=== PATIENT | female | born 1965 | race Caucasian/White ===

== ENCOUNTER 2020-08-10 23:23 | Emergency (ER) | payer MEDICAID, OTHER, SELFPAY ==
[~2020-08-10] VITALS: Ht 147.3 cm; Wt 54.5 kg
--- NOTE | 2020-08-10 23:39 | NUR ---
C/O RIGHT WRIST/PALM/FINGERS PAINFUL STATES HAD BONE DENSITY TEST DONE AND HER DR THINKS SHE HAS RA. NO TRAUMA, PAIN COMES AND GOES BUT HAS NEVER BEEN THIS STRONG BEFORE.
[2020-08-10] MEDS ORDERED: ONDANSETRON ODT 4 MG ONE (23:53)
[2020-08-10] MEDS ORDERED: OXYcodone/APAP 5/325MG TABLET ONE (23:54)
[2020-08-11] MEDS ORDERED: ONDANSETRON ODT 4 MG PO ONE
[2020-08-11] MEDS ORDERED: OXYcodone/APAP 5/325MG TABLET PO ONE
--- NOTE | 2020-08-11 00:04 | NUR ---
MEDICATED PER ORDER, PT UPDATED ON POC AND PROCESS/TIMELINE. CALL [facility] IN [place]. LAB HERE DRAWING BLOOD.
--- NOTE | 2020-08-11 00:35 | NUR ---
REPORT FROM JOSH HARE
[2020-08-11 00:49] LABS: BASOPHILS % (AUTO) 1 % (0-1); EOSINOPHILS % (AUTO) 7 % (1-7); LYMPHOCYTES % (AUTO) 21 % (22-44); MEAN CORPUSCULAR HGB CONC 32.6 g/dL (32.4-35.8); MEAN PLATELET VOLUME 8.2 fL (7.4-10.4); MONOCYTES % (AUTO) 5 % (2-9); NEUTROPHILS % (AUTO) 66 % (42-75); PLATELET COUNT 539 x10^3/uL (130-400); RED BLOOD COUNT 4.79 x10^6/uL (3.82-5.3); RED CELL DISTRIBUTION WIDTH 13.4 % (9.6-15.2)
[2020-08-11 01:00] LABS: MD NO
[2020-08-11 01:23] VITALS: BP 157/67
== END 2020-08-11 01:24 | disposition home or self-care (01) ==
LOC: ED 08-11 00:21
DX: S62.356A Nondisplaced fracture of shaft of fifth metacarpal bone, right hand, initial encounter for closed fracture (principal); I10 Essential (primary) hypertension; X58.XXXA Exposure to other specified factors, initial encounter; Y93.89 Activity, other specified; Y92.89 Other specified places as the place of occurrence of the external cause; Y99.8 Other external cause status
CPT/HCPCS: 29125; 36415; 73130; 84550; 85025; 99284; Q0162